=== PATIENT | female | born 1975 | race Caucasian/White ===

== ENCOUNTER 2018-05-31 21:58 | Emergency (ER) | payer OTHER ==
[~2018-05-31] VITALS: Ht 165.1 cm; Wt 76.2 kg
[~2018-05-31 21:58] MED LIST: AVAPRO75 MG PO; KETO10TA2 PO; ORPH100T PO
[2018-05-31] MEDS ORDERED: LATUDA40 MG (22:09)
[2018-05-31] MEDS ORDERED: OBSTETRIX ONE1 EACH (22:09)
[2018-05-31] MEDS ORDERED: BENADRYL50 MG PO (23:40)
[2018-05-31] MEDS ORDERED: PEPCID AC20 MG PO (23:40)
== END 2018-06-01 00:17 | disposition home or self-care (01) ==
LOC: ER 21:58
DX: G25.9 Extrapyramidal and movement disorder, unspecified (principal)

== ENCOUNTER 2022-02-23 09:38 | Emergency (ER) | payer OTHER ==
[~2022-02-23] VITALS: Ht 165.1 cm; Wt 72.6 kg
[~2022-02-23 09:38] MED LIST changes: +BENADRYL50 MG PO; +LATUDA40 MG; +OBSTETRIX ONE1 EACH; +PEPCID AC20 MG PO
[2022-02-23] MEDS ORDERED: LEXAPRO20 MG PO (10:30)
[2022-02-23] MEDS ORDERED: CLONAZEPAM1 MG PO (10:31)
[2022-02-23] MEDS ORDERED: KETO10TA2 PO (13:27)
[2022-02-23] MEDS ORDERED: NORFLEX100MG PO (13:27)
== END 2022-02-23 13:29 | disposition home or self-care (01) ==
LOC: ER 09:38
DX: M54.2 Cervicalgia (principal); M54.50 Low back pain, unspecified; V49.9XXA Car occupant (driver) (passenger) injured in unspecified traffic accident, initial encounter; Y93.9 Activity, unspecified; Y92.9 Unspecified place or not applicable; Z88.8 Allergy status to other drugs, medicaments and biological substances